=== PATIENT | male | born 1980 | race Caucasian/White ===

== ENCOUNTER 2016-09-15 13:46 | Emergency (ER) | payer SELFPAY ==
--- NOTE | 2016-09-15 13:54 | ER Document Report ---
ED Medical Screen (RME) - General Stated Complaint: TOOTH PAIN Mode of Arrival: Ambulatory Information source: Patient Notes: Patient presents to the emergency department with complaints of dental pain for the past 2 weeks. I have greeted and performed a rapid initial assessment of this patient. A comprehensive ED assessment and evaluation of the patient, analysis of test results and completion of the medical decision making process will be conducted by additional ED providers. Physical Exam - Vital signs Vitals: Temp Pulse Resp BP Pulse Ox 98.0 F 56 L 14 134/85 H 99 09/15/16 13:50 09/15/16 13:50 09/15/16 13:50 09/15/16 13:50 09/15/16 13:50 Course - Vital Signs Vital signs: Temp Pulse Resp BP Pulse Ox 98.0 F 56 L 14 134/85 H 99 09/15/16 13:50 09/15/16 13:50 09/15/16 13:50 09/15/16 13:50 09/15/16 13:50
--- NOTE | 2016-09-15 15:47 | ER Document Report ---
ED Oral Problem - General Mode of Arrival: Ambulatory Information source: Patient TRAVEL OUTSIDE OF THE [place] IN LAST 30 DAYS: No - HPI Patient complains to provider of: Toothache - Right lower 1st and 2nd molars Onset: Other - 2 weeks ago Associated symptoms: Other - see above - General Chief Complaint: Toothache Stated Complaint: TOOTH PAIN Notes: 36 year old male presents to the ED complaining of lower right molar tooth pain that started 2 weeks ago. Patient reports that he is having difficulty eating secondary to this pain. Patient has tried rinsing his mouth with salt water, Tylenol, and Motrin, but to no relief. Patient denies any allergies or history of other medical problems. (ALEJANDRA BASSETT) - Related Data Allergies/Adverse Reactions: No Known Allergies Allergy (Unverified 09/15/16 13:57) Past Medical History - General Information source: Patient - Social History Smoking Status: Current Every Day Smoker Cigarette use (# per day): Yes - 1 pack per 3 days Family History: Reviewed & Not Pertinent Patient has suicidal ideation: No Patient has homicidal ideation: No Renal/ Medical History: Denies: Hx Peritoneal Dialysis Past Surgical History: Reports: Hx Orthopedic Surgery - right knee surgery at age 6, Other - Inguinal hernia repair 2-3 years ago Review of Systems - Review of Systems Constitutional: No symptoms reported EENT: See HPI, Other - lower right molar tooth pain Cardiovascular: No symptoms reported Respiratory: No symptoms reported Gastrointestinal: No symptoms reported Genitourinary: No symptoms reported Male Genitourinary: No symptoms reported Musculoskeletal: No symptoms reported Skin: No symptoms reported Hematologic/Lymphatic: No symptoms reported Neurological/Psychological: No symptoms reported -: Yes All other systems reviewed and negative Physical Exam - General General appearance: Alert In distress: None - HEENT Head: Normocephalic, Atraumatic Eyes: Normal Extraocular movements intact: Yes Pupils: PERRL Mouth/Lips: Other - Outer wall of the right lower 1st molar is decayed and tender to palpate. Right lower 2nd molar is broken at gumline and tender to palpate. Right lower 3rd molar is broken at gumline, but is not tender to palpate. There is gum swelling, but no abscess. - Respiratory Respiratory status: No respiratory distress - Cardiovascular Rhythm: Regular - Abdominal Inspection: Normal - Back Back: Normal - Extremities General upper extremity: Normal inspection, Normal ROM General lower extremity: Normal inspection, Normal ROM - Neurological Neuro grossly intact: Yes - Psychological Associated symptoms: Normal affect, Normal mood - Skin Skin Temperature: Warm Skin Moisture: Dry Skin Color: Normal - Vital signs Vitals: Temp Pulse Resp BP Pulse Ox 98.0 F 56 L 14 134/85 H 99 09/15/16 13:50 09/15/16 13:50 09/15/16 13:50 09/15/16 13:50 09/15/16 13:50 Discharge - Discharge Clinical Impression: Toothache Instructions: Dentist Additional Instructions: Toothache: Your pain is due to dental decay. The tooth must be removed in order for you to feel better. You will, therefore, be referred to a dentist. Severe swelling or drainage around a tooth usually means a deep dental abscess. This also requires evaluation and treatment by the dentist, but antibiotics may be prescribed while awaiting dental treatment. You should be rechecked immediately if you develop major swelling of the face, increasing pain, a lump in the jaw or gums, headache, or fever. TAKE THE MEDICATION PRESCRIBED. FOLLOW UP WITH A DENTIST THIS WEEK. RETURN TO THE EMERGENCY ROOM IF ANY NEW OR WORSENING SYMPTOMS. Prescriptions: Oxycodone HCl/Acetaminophen [Percocet 5-325 mg Tablet] 1 - 2 tab PO ASDIR PRN # 15 tablet PRN Reason: Penicillin V Potassium [Penicillin Vk 500 mg Tablet] 500 mg PO QID #28 tablet Forms: Return to Work Scribe Attestation: 09/15/16 15:51 I personally performed the services described in the documentation, reviewed and edited the documentation which was dictated to the scribe in my presence, and it accurately records my words and actions. (NOEMI KIM) Scribe Documentation - Scribe Written by Helio:: Helio Chan, 09/15/2016 1610 acting as scribe for :: Edwin
[2016-09-15 16:06] VITALS: BP 139/86
== END 2016-09-15 16:01 | disposition home or self-care (01) ==
LOC: ER 13:46
DX: K08.89 Other specified disorders of teeth and supporting structures (principal); F17.210 Nicotine dependence, cigarettes, uncomplicated
CPT/HCPCS: 99282